=== PATIENT | female | born 1985 | race Hispanic/Latino ===

== ENCOUNTER 2018-08-27 12:25 | Emergency (ER) | payer MEDICAID | END 2018-08-27 13:47 | disposition home or self-care (01) | LOC: EDH 12:25 | DX: L03.011 Cellulitis of right finger (principal); Z98.890 Other specified postprocedural states | CPT/HCPCS: 73140; 81025 ==

== ENCOUNTER 2018-08-31 13:04 | Emergency (ER) | payer BC, MEDICAID | END 2018-08-31 15:07 | disposition home or self-care (01) | LOC: EDH 13:04 | DX: L03.011 Cellulitis of right finger (principal) | CPT/HCPCS: 10060 ==

== ENCOUNTER 2022-07-21 03:06 | Emergency (ER) | payer BC, MEDICAID ==
[~2022-07-21] VITALS: Ht 160 cm; Wt 104.8 kg
[2022-07-21] MEDS ORDERED: SOLU-MEDROL 125MG VIAL IM ONE (04:00)
[2022-07-21] MEDS ORDERED: FAMOTIDINE 20MG TAB PO ONE (04:00)
[2022-07-21] MEDS ORDERED: DiphenhydrAMINE HCL 50 MG/ML VIAL IM ONE (04:00)
[2022-07-21 06:04] VITALS: BP 126/78
== END 2022-07-21 06:05 | disposition home or self-care (01) ==
LOC: EDH 03:06
DX: L27.0 Generalized skin eruption due to drugs and medicaments taken internally (principal); L29.9 Pruritus, unspecified; Z88.1 Allergy status to other antibiotic agents
CPT/HCPCS: 99284; 96372; J1200; J2930